=== PATIENT | female | born 2000 | race African-American/Black ===

== ENCOUNTER 2024-10-18 03:20 | Emergency (ER) | payer SELFPAY ==
[2024-10-18] MEDS ORDERED: Sodium Chloride 0.9% 10 ML Syringe FLUSH PRN (03:49)
[2024-10-18] MEDS: Sodium Chloride 0.9% 1,000 ML IV ONE (03:58)
[2024-10-18] MEDS: Famotidine 20 MG Tab PO ONE (03:58)
[2024-10-18] MEDS: Alum Hydrox/Mag Hydrox/Simeth 30 ML, Lidocaine 2% 15 ML PO ONE (03:58)
[2024-10-18 04:04] LABS: BASOPHILS ABSOLUTE AUTO 0.1 K/mm3 (0.0-0.2); BASOPHILS PERCENT AUTO 0.8 % (0.0-1.0); HEMATOCRIT 32.7 % (37.0-47.0); HEMOGLOBIN 9.5 gm/dl (12.0-16.0); IMMATURE GRAN ABSOLUTE AUTO 0.02 K/mm3 (0.00-0.05); IMMATURE GRAN PERCENT AUTO 0.3 % (0.0-0.4); LYMPHOCYTES ABSOLUTE AUTO 2.6 K/mm3 (1.0-4.8); MEAN CORPUSCULAR HEMOGLOBIN 19.1 pg (28.0-32.0); MEAN CORPUSCULAR HGB CONC 29.1 g/dl (32.0-36.0); MEAN CORPUSCULAR VOLUME 65.8 fl (83.0-99.0); MONOCYTES ABSOLUTE AUTO 0.7 K/mm3 (0.0-0.8); MONOCYTES PERCENT AUTO 10.1 % (0.0-8.0); NEUTROPHILS ABSOLUTE AUTO 3.3 K/mm3 (1.8-7.7); NEUTROPHILS PERCENT AUTO 49.8 % (41.0-71.0); PLATELET COUNT,PLT 263 K/mm3 (150-400); RED BLOOD CELL COUNT 4.97 M/mm3 (4.10-5.30); WHITE BLOOD CELL COUNT,WBC 6.62 K/mm3 (3.9-11.3)
[2024-10-18] MEDS: Sodium Chloride 0.9% 45 ML IV SCH (04:19)
[2024-10-18] MEDS: Sodium Chloride 0.9% 10 ML Syringe FLUSH PRN (04:19)
[2024-10-18] MEDS: Iopamidol 755 Mg/ML 100 ML Bottle IVPUSH ONE (04:19)
[2024-10-18 04:24] LABS: HCG QUALITATIVE,SERUM NEGATIVE (NEGATIVE)
[2024-10-18 04:39] LABS: A/G RATIO 1.1 (1-2); ALANINE AMINOTRANSFERASE,ALT 26 U/L (14-59); ALBUMIN 3.6 g/dl (3.4-5.0); ALKALINE PHOSPHATASE 86 U/L (46-116); ANION GAP 9.6 (5-15); ASPARTATE AMNIOTRANSFERASE,AST 25 U/L (15-37); BILIRUBIN TOTAL 0.4 mg/dL (0.2-1.0); BLOOD UREA NITROGEN,BUN 13 mg/dL (7-18); BUN/CREATININE RATIO 11.8 (14-18); CALCIUM 8.7 mg/dL (8.5-10.1); CARBON DIOXIDE,CO2 27 mEq/L (21-32); CHLORIDE,CL 103 mEq/L (98-107); CREATININE 1.1 mg/dL (0.55-1.02); EST CRCL DRUG DOSING (CG) 74.46 mL/min; ESTIMATED GFR 72 mL/min (>60); GLUCOSE RANDOM 97 mg/dL (70-99); LIPASE 32 U/L (16-77); POTASSIUM,K 3.6 mEq/L (3.5-5.1); PROTEIN TOTAL,TP 6.9 g/dl (6.4-8.2); SODIUM,NA 136 mEq/L (136-145)
[2024-10-18 04:41] LABS: SLIDE REVIEW ABNORMAL SMEAR
[2024-10-18 04:43] LABS: PRO B-TYPE NATRIUR PEPT,BNPPRO 13 pg/mL (0-125); TROPONIN I HIGH SENSITIVITY < 4 pg/mL (<=51)
== END 2024-10-18 06:45 | disposition home or self-care (01) ==
LOC: JD.ED 03:20
DX: R07.9 Chest pain, unspecified (principal); R06.02 Shortness of breath; Z79.899 Other long term (current) drug therapy
CPT/HCPCS: 36415; 71275; 80053; 83690; 83880; 84484; 84703; 85025; 93005; 96360; 99285; A9270; J7030; Q9967; 93010; 99284

== ENCOUNTER 2024-10-19 15:00 | Emergency (ER) | payer SELFPAY | END 2024-10-19 15:40 | disposition home or self-care (01) | LOC: JD.ED 15:00 | DX: Z02.79 Encounter for issue of other medical certificate (principal) | CPT/HCPCS: 99281; 99282 ==